=== PATIENT | female | born 1935 | race Caucasian/White ===

== ENCOUNTER 2017-07-18 14:09 | Inpatient (IN) | payer MEDICARE, OTHER ==
[2017-07-18] MEDS ORDERED: Sodium Chloride 0.9% 500 ML IV ONE (14:19)
[2017-07-18] MEDS ORDERED: Sodium Chloride 0.9% 10 ML Syringe FLUSH PRN ×2 (14:19→18:26)
[2017-07-18] MEDS ORDERED: Famotidine 20 MG Tab PO ONE (14:19)
[2017-07-18] MEDS ORDERED: Ondansetron 4 MG/2 ML SDV IVPUSH ONE (14:19)
--- NOTE | 2017-07-18 14:21 | EDM.PDOC ---
ED HPI GENERAL MEDICAL PROBLEM - General Chief Complaint: Chest Pain Stated Complaint: [facility] Time Seen by Provider: 07/18/17 14:17 Source of Information: Reports: Patient, EMS, RN Notes Reviewed - History of Present Illness INITIAL COMMENTS - FREE TEXT/NARRATIVE: 82-year-old lady is been brought in by [facility] [place] [facility] for evaluation of upper abdominal discomfort, left lower chest discomfort, nausea vomiting. This all came on quite suddenly just a short time ago. She did get weak, lightheaded and dizzy and diaphoretic so very concerned about having heart attack. She does have history of coronary artery disease with prior IN in the past. She had been feeling totally fine with no unusual symptoms earlier today. There is no report of cough, fever, chills, diarrhea. She also does deny vertigo. Continues to feel extremely nauseated continued vomiting on arrival to ED. Chest Pain Score (Numeric/FACES): 4 - Related Data Allergies Allergy/AdvReac Type Severity Reaction Status Date / Time Penicillins Allergy Cannot Verified 07/18/17 14:16 Remember codeine AdvReac Nausea and Verified 07/18/17 14:35 Vomiting diazepam [From Valium] AdvReac Change Verified 07/18/17 14:35 Mental Status hydrocodone AdvReac Nausea and Verified 07/18/17 14:35 Vomiting Home Meds: Home Meds Levothyroxine 25 mcg PO ACBREAKFAST 07/18/17 [History] Social & Family History - Tobacco Use Smoking Status *Q: Never Smoker - Alcohol Use Days Per Week of Alcohol Use: 0 - Recreational Drug Use Recreational Drug Use: No ED ROS GENERAL - Review of Systems Review Of Systems: See Below Constitutional: Reports: Diaphoresis. Denies: Fever, Chills HEENT: Denies: Throat Pain Respiratory: Reports: Shortness of Breath (Moderate with vomiting). Denies: Pleuritic Chest Pain Cardiovascular: Reports: Chest Pain (Primarily upper mid abdominal discomfort with some left lower chest discomfort as well), Lightheadedness GI/Abdominal: Reports: Abdominal Pain, Nausea (Upper mid abdominal pain and cramping), Vomiting. Denies: Diarrhea (Severe, repetitive) Musculoskeletal: Denies: Neck Pain, Shoulder Pain, Arm Pain Skin: Reports: Diaphoresis (No better) Neurological: Reports: Dizziness. Denies: Numbness, Tingling, Trouble Speaking ED EXAM, GENERAL - Physical Exam Exam: See Below General Appearance: Alert, Anxious, Moderate Distress Eye Exam: Bilateral Eye: PERRL Throat/Mouth: Normal Inspection Head: Atraumatic. No: Facial Swelling Neck: Supple, Full Range of Motion, Other (No JVD) Respiratory/Chest: Lungs Clear, Normal Breath Sounds, Respiratory Distress ( Mild tachypnea noted with nausea vomiting on arrival to ED). No: Rales, Rhonchi , Wheezing Cardiovascular: Regular Rate, Rhythm GI/Abdominal: Soft, Tender (Upper mid abdomen). No: Guarding, Rebound Back Exam: No: CVA Tenderness (L), CVA Tenderness (R) Extremities: Normal Inspection, Normal Range of Motion. No: Pedal Edema, Leg Pain Neurological: Alert, Oriented, No Motor/Sensory Deficits Skin Exam: Warm, Dry, Pallor Course - Vital Signs Last Recorded V/S: Last Vital Signs Temp 99.9 F 07/18/17 14:14 Pulse 97 07/18/17 14:14 Resp 19 07/18/17 14:14 BP 191/104 H 07/18/17 14:14 Pulse Ox 97 07/18/17 14:14 - Orders/Labs/Meds Orders: Active Orders 24 hr Category Date Time Status EKG 12 Lead [EKG Documentation Completion] [RC] STAT Care 07/18/17 14:19 Active Peripheral IV Care [RC] . DIRECTED Care 07/18/17 14:21 Active Sodium Chloride 0.9% [Saline Flush] Med 07/18/17 14:19 Active 10 ml FLUSH ASDIRECTED PRN Sodium Chloride 0.9% [Saline Flush] Med 07/18/17 18:26 Active 10 ml FLUSH ONETIME PRN Peripheral IV Insertion Adult [OM.PC] Stat Oth 07/18/17 14:19 Ordered Medication Orders Sodium Chloride (Saline Flush) 10 ml FLUSH ASDIRECTED PRN PRN Reason: Keep Vein Open Last Admin: 07/18/17 14:32 Dose: 10 ml Sodium Chloride (Saline Flush) 10 ml FLUSH ONETIME PRN PRN Reason: IV FLUSH Last Admin: 07/18/17 18:54 Dose: 10 ml Labs: Laboratory Tests 07/18/17 07/18/17 07/18/17 Range/Units 14:27 14:27 18:01 WBC 8.60 (3.98-10.04) K/mm3 RBC 4.65 (3.98-5.22) M/mm3 Hgb 14.3 (11.2-15.7) gm/L Hct 41.1 (34.1-44.9) % MCV 88.4 (79.4-94.8) fl MCH 30.8 (25.6-32.2) pg MCHC 34.8 (32.2-35.5) g/dl RDW Std Deviation 41.2 (36.4-46.3) fL Plt Count 207 (182-369) K/mm3 MPV 9.6 (9.4-12.3) fl Neut % (Auto) 85.8 H (34.0-71.1) % Lymph % (Auto) 9.4 L (19.3-51.7) % [place] % (Auto) 4.4 L (4.7-12.5) % Eos % (Auto) 0.3 L (0.7-5.8) Baso % (Auto) 0.1 (0.1-1.2) % Neut # (Auto) 7.37 H (1.56-6.13) K/mm3 Lymph # (Auto) 0.81 L (1.18-3.74) K/mm3 [place] # (Auto) 0.38 H (0.24-0.36) K/mm3 Eos # (Auto) 0.03 L (0.04-0.36) K/mm3 Baso # (Auto) 0.01 (0.01-0.08) K/mm3 Manual Slide Review Normal smear Sodium 137 (136-145) mEq/L Potassium 4.0 (3.5-5.1) mEq/L Chloride 101 (98-107) mEq/L Carbon Dioxide 25 (21-32) mEq/L Anion Gap 15.0 (5-15) BUN 20 H (7-18) mg/dL Creatinine 1.1 H (0.55-1.02) mg/dL Est Cr Clr Drug Dosing 34.87 mL/min Estimated GFR (MDRD) 47 (>60) mL/min BUN/Creatinine Ratio 18.2 H (14-18) Glucose 115 (83-115) mg/dL Calcium 9.2 (8.5-10.1) mg/dL Total Bilirubin 0.4 (0.2-1.0) mg/dL AST 33 (15-37) U/L ALT 36 (14-59) U/L Alkaline Phosphatase 97 (46-116) U/L Troponin I 0.017 0.020 (0.00-0.056) ng/mL Total Protein 8.0 (6.4-8.2) g/dl Albumin 3.9 (3.4-5.0) g/dl Globulin 4.1 gm/dL Albumin/Globulin Ratio 1.0 (1-2) Meds: Medications Generic Name Dose Route Start Last Admin Trade Name Freq PRN Reason Stop Dose Admin Sodium Chloride 10 ml 07/18/17 14:19 07/18/17 14:32 Saline Flush FLUSH 10 ml ASDIRECTED PRN Administration Keep Vein Open Sodium Chloride 10 ml 07/18/17 18:26 07/18/17 18:54 Saline Flush FLUSH 10 ml ONETIME PRN Administration IV FLUSH Discontinued Medications Generic Name Dose Route Start Last Admin Trade Name Freq PRN Reason Stop Dose Admin Diatrizoate Meglum/Diatrizoate Sod 90 ml 07/18/17 18:26 07/18/17 18:54 Gastrografin 37% PO 07/18/17 18:27 90 ml ONETIME ONE Administration Famotidine 20 mg 07/18/17 14:19 07/18/17 17:52 Pepcid PO 07/18/17 14:20 Not Given ONETIME ONE Famotidine Confirm 07/18/17 14:33 07/18/17 14:32 Pepcid Administered 07/18/17 14:34 Not Given Dose 20 mg .ROUTE .STK-MED ONE Famotidine 20 mg 07/18/17 14:30 07/18/17 14:34 Pepcid IVPUSH 07/18/17 14:31 20 mg ONETIME ONE Administration Hydromorphone HCl 0.25 mg 07/18/17 14:58 07/18/17 15:06 Dilaudid IVPUSH 07/18/17 14:59 0.25 mg ONETIME ONE Administration Hydromorphone HCl 0.25 mg 07/18/17 15:47 07/18/17 16:19 Dilaudid IVPUSH 07/18/17 15:48 0.25 mg ONETIME ONE Administration Sodium Chloride 500 mls @ 999 mls/hr 07/18/17 14:19 07/18/17 14:31 Normal Saline IV 07/18/17 14:49 999 mls/hr .BOLUS ONE Administration Iopamidol 100 ml 07/18/17 18:26 07/18/17 18:54 Isovue-300 (61%) IVPUSH 07/18/17 18:27 100 ml ONETIME ONE Administration Metoclopramide HCl 5 mg 07/18/17 15:34 07/18/17 15:40 Reglan IVPUSH 07/18/17 15:35 5 mg ONETIME ONE Administration Ondansetron HCl 4 mg 07/18/17 14:19 07/18/17 14:31 Zofran IVPUSH 07/18/17 14:20 4 mg ONETIME ONE Administration Promethazine HCl 25 mg 07/18/17 16:55 07/18/17 17:00 Phenergan IM 07/18/17 16:56 25 mg ONETIME ONE Administration - Re-Assessments/Exams Free Text/Narrative Re-Assessment/Exam: 07/18/17 17:02. Patient has had severe recurrent upper abdominal pain, nausea, recurrent vomiting. She had Zofran 4 mg ODT in route but vomited shortly after that. We gave her Zofran 4 mg IV on arrival to ED. With continued nausea vomiting we've given Reglan 4 mg IV. she has had further nausea vomiting after her flat and upright abdomen. Therefore we will now give Phenergan 25 mg IM. Flat and upright of the abdomen does show multiple air-fluid levels on the right. Therefore abdominal CT with oral and IV contrast has been ordered. Hopefully the Phenergan will help. Unable to tolerate oral contrast we will have to do it with out ORAL. 07/18/17 20:[address] does show small bowel slightly prominent but improved from flat and upright done about 2 hours ago. Radiologist states this may represent a minimal partial small bowel obstruction or may represent change from gastroenteritis. See report for details. She still is nauseated but at least now no longer having the frequent repetitive vomiting that we were dealing with initially. She still does have some upper abdominal discomfort and cramping. Repeat troponin has come back negative. Patient will be admitted for further treatment. Departure - Departure Time of Disposition: 19:45 Disposition: Admitted As Inpatient 65 Condition: Fair Clinical Impression: Abdominal pain Qualifiers: Abdominal location: upper abdomen, unspecified Qualified Code(s): R10.10 - Upper abdominal pain, unspecified Vomiting Qualifiers: Vomiting type: unspecified Vomiting Intractability: non-intractable Nausea presence: with nausea Qualified Code(s): R11.2 - Nausea with vomiting, unspecified Referrals: PCP,Not In Area [Primary Care Provider] - Forms: ED Department Discharge ED Communication - Discussed Case With (1) Discussed Case With (1): Admitting Provider (David, decision to admit at about 194) - My Orders Last 24 Hours: My Active Orders 07/18/17 14:19 EKG 12 Lead [EKG Documentation Completion] [RC] STAT Sodium Chloride 0.9% [Saline Flush] 10 ml FLUSH ASDIRECTED PRN Peripheral IV Insertion Adult [OM.PC] Stat 07/18/17 14:21 Peripheral IV Care [RC] . DIRECTED 07/18/17 18:26 Sodium Chloride 0.9% [Saline Flush] 10 ml FLUSH ONETIME PRN - Assessment/Plan Last 24 Hours: My Active Orders 07/18/17 14:19 EKG 12 Lead [EKG Documentation Completion] [RC] STAT Sodium Chloride 0.9% [Saline Flush] 10 ml FLUSH ASDIRECTED PRN Peripheral IV Insertion Adult [OM.PC] Stat 07/18/17 14:21 Peripheral IV Care [RC] . DIRECTED 07/18/17 18:26 Sodium Chloride 0.9% [Saline Flush] 10 ml FLUSH ONETIME PRN
[2017-07-18] MEDS ORDERED: Famotidine 20 MG/2 ML SDV IVPUSH ONE (14:30)
[2017-07-18] MEDS ORDERED: Famotidine 20 MG/2 ML SDV ONE (14:33)
[2017-07-18] MEDS ORDERED: HYDROmorphone 0.5 MG/0.5 ML SYRINGE IVPUSH ONE ×2 (14:58→15:47)
[2017-07-18] MEDS ORDERED: Metoclopramide 10 MG/2 ML SDV IVPUSH ONE (15:34)
--- NOTE | 2017-07-18 15:46 | CR ---
Chest: Portable view of the chest was obtained. Comparison: Prior chest x-ray of 03/09/14. Heart size slightly prominent but accentuated from portable technique. Lungs are clear. Bony structures are grossly intact. Surgical clips are noted from prior cholecystectomy. Impression: 1. Accentuated heart size due to portable technique. 2. Nothing acute is appreciated on portable chest x-ray. Diagnostic code #2
[2017-07-18] MEDS ORDERED: Promethazine 25 MG/ML SDV IM ONE (16:55)
--- NOTE | 2017-07-18 18:17 | CR ---
Abdomen: Upright view of the abdomen was obtained. Slightly prominent air-filled loops of small bowel are noted within right mid abdomen. Air-fluid levels are seen. Surgical clips are noted within the upper right abdomen. Bony structures are unremarkable. Several surgical clips are seen within the left side of the pelvis. Other surgical clips are seen within the left mid abdomen. Impression: 1. Slightly prominent small bowel loops with air-fluid levels most likely due to distal small bowel obstruction. Diagnostic code #3
[2017-07-18] MEDS ORDERED: Iopamidol 612 MG/ML 100 ML Bottle IVPUSH ONE (18:26)
[2017-07-18] MEDS ORDERED: Diatrizoate Meglumine/Diatrizoate Sodium 37% 120 ML Bottle PO ONE (18:26)
--- NOTE | 2017-07-18 19:26 | CT ---
CT abdomen and pelvis Technique: Multiple axial sections were obtained from above the dome of the diaphragm inferiorly through the pubic symphysis. Intravenous and oral contrast was utilized. Delayed images were also obtained through the pelvis. Comparison: Prior abdominal x-ray performed earlier on the same day (4:35 PM). Findings: Visualized lung bases shows nothing acute. Liver shows no focal parenchymal abnormality. Surgical clips are seen from prior cholecystectomy. Small hiatal hernia is noted. Spleen appears within normal limits. Adrenal glands show no nodule. Right kidney shows a minimal low-density lesion inferiorly measuring 6 mm which is nonspecific regarding Hounsfield unit measurements. Low-density lesion is seen within the mid to lower left kidney measuring 5 mm also too small to characterize by Hounsfield unit measurements but most likely due to small cysts. Aorta shows diffuse atherosclerotic change without aneurysmal dilatation. No retroperitoneal adenopathy is seen. No pelvic mass or adenopathy is noted. Delayed images shows contrast within the distal ureters and within the bladder. Small bowel appears slightly prominent but does not appear as prominent as on the plain film study and may represent a minimal partial small bowel obstruction or represent change from gastroenteritis. No other etiology is otherwise seen on this exam. Appendix is not visualized with certainty. No free fluid or inflammatory change is seen. Bone window settings shows mild degenerative change at L4-L5 and L5-S1 with mild disc space narrowing and vacuum phenomena and anterior osteophytes. Impression: 1. Minimally prominent small bowel. This does not appear as prominent as on prior plain film exam. Minimal partial small bowel obstruction is possible or gastroenteritis can also cause a similar finding. 2. Other incidental findings as noted above. Diagnostic code #3
[2017-07-18] MEDS ORDERED: Promethazine 6.25 MG in Sodium Chloride 0.9% 50 ML IV PRN (22:11)
[2017-07-18] MEDS ORDERED: Ondansetron 4 MG/2 ML SDV IV PRN (22:11)
[2017-07-18] MEDS ORDERED: LORazepam 2 MG/ML MDV IV PRN (22:11)
[2017-07-18] MEDS ORDERED: HYDROmorphone 0.5 MG/0.5 ML SYRINGE IVPUSH PRN (22:11)
[2017-07-18] MEDS ORDERED: Albuterol/Ipratropium 3.0-0.5 MG/3 ML Neb Soln NEB PRN (22:11)
[2017-07-18] MEDS ORDERED: Acetaminophen 325 MG Tab PO PRN (22:11)
[2017-07-18] MEDS ORDERED: Pantoprazole 40 MG Vial ONE (22:11)
--- NOTE | 2017-07-18 22:11 | PCM.HP ---
H&P History of Present Illness - General Date of Service: 07/18/17 Admit Problem/Dx: Admission Diagnosis/Problem Admission Diagnosis/Problem Ileus Source of Information: Patient, Family, Old Records, Provider, RN Notes Reviewed History Limitations: Reports: No Limitations - History of Present Illness Initial Comments - Free Text/Narative: This is an 82 yo pleasant elderly white female with past medical hx/o hypothyroidism who comes in for evaluation of upper abdominal pain associated with nausea, vomiting and lose bowel movement that started shortly today. She denies eating/drinking unusual food or fluids. She denies any sick contact. No recent travel outside the country. She report no previous hx/o it in the past. She also associate her c/o with weakness, lightheadedness, dizziness and diaphoresis. Initial workup in the emergency department shows a CBC remarkable for neutrophils of 85.8%, lymphocytes of 9.4%, monocytes of 4.4%, and eosinophils of 0.3%. Her chemistry is remarkable for BUN of 20, and creatinine of 1.1. Her troponin 2 are within normal limits. Her chest x-ray shows nothing acute. Abdominal x-ray report reads slightly prominent small bowel loops with airfluid levels most likely due to distal small bowel obstruction. Abdominal/pelvic CT scan report shows minimally prominent small bowel. This does not appear as prominent as on prior plain film exam. Minimal partial small bowel obstruction is possible or gastroenteritis can also cause a similar finding. Patient is being admitted for medical management of epigastric pain and partial small bowel obstruction. She is full code. Chest Pain Score (Numeric/FACES): 4 - Related Data Allergies/Adverse Reactions: Allergies Allergy/AdvReac Type Severity Reaction Status Date / Time Penicillins Allergy Cannot Verified 07/19/17 00:04 Remember codeine AdvReac Nausea and Verified 07/19/17 00:04 Vomiting diazepam [From Valium] AdvReac Change Verified 07/19/17 00:04 Mental Status hydrocodone AdvReac Nausea and Verified 07/19/17 00:04 Vomiting Home Medications: Home Meds Levothyroxine 25 mcg PO ACBREAKFAST 07/18/17 [History] Cholecalciferol (Vitamin D3) [D3-2000] 6,000 unit PO DAILY 07/19/17 [History] Fish Oil/[place]-3 Fatty Acids [Fish Oil 1,000 MG] 1 each PO DAILY 07/19/17 [ History] Magnesium Oxide 500 mg PO BEDTIME 07/19/17 [History] Ubidecarenone/Vitamin E Mixed [Vhw92-[id number] E 200 mg-20 Unit Sfg] 600 unit PO DAILY 07/19/17 [History] Past Medical History Cardiovascular History: Reports: [place] Respiratory History: Reports: SOB Musculoskeletal History: Reports: Fracture Endocrine/Metabolic History: Reports: Hypothyroidism Oncologic (Cancer) History: Reports: Breast - Past Surgical History Cardiovascular Surgical History: Reports: Coronary Artery Stent GI Surgical History: Reports: Appendectomy, Cholecystectomy Musculoskeletal Surgical History: Reports: Other (See Below) Other Musculoskeletal Surgeries/Procedures:: wrist surgery Social & Family History - Family History Family Medical History: Noncontributory - Tobacco Use Smoking Status *Q: Never Smoker Used Tobacco, but Quit: Yes Month Tobacco Last Used: 1977 Second Hand Smoke Exposure: No - Caffeine Use Caffeine Use: Reports: Coffee - Alcohol Use Days Per Week of Alcohol Use: 0 - Recreational Drug Use Recreational Drug Use: No H&P Review of Systems - Review of Systems: Review Of Systems: See Below General: Reports: Diaphoresis. Denies: Fever, Chills, Malaise, Weakness, Fatigue HEENT: Reports: No Symptoms Pulmonary: Denies: Shortness of Breath, Pleuritic Chest Pain, Cough Cardiovascular: Reports: Lightheadedness. Denies: Chest Pain, Palpitations, Dyspnea on Exertion, Edema, Syncope, Claudication, Blood Pressure Problem Gastrointestinal: Reports: Abdominal Pain (epigastric), Flatus, Nausea, Vomiting , Other (Lose bowel ). Denies: Anorexia, Black Stool, Bloody Stool, Constipation, Diarrhea, Decreased Appetite, Difficulty Swallowing, Distension, Hematemesis, Hematochezia, Melena, Mucous in Stool Genitourinary: Reports: No Symptoms Musculoskeletal: Reports: No Symptoms Skin: Denies: Cyanosis, Mottled, Pallor, Diaphoresis, Bruising, Rash, Erythema, Change in Color Psychiatric: Denies: Depression, Anxiety, Hallucinations, Homicidal Ideation, Hallucinations (Auditory) Neurological: Reports: Dizziness. Denies: Confusion, Difficulty Walking, Weakness, Gait Disturbance Hematologic/Lymphatic: Reports: No Symptoms Immunologic: Reports: No Symptoms Exam - Exam Exam: See Below - Vital Signs Vital Signs: Last Vital Signs Temp 37.7 C 07/18/17 14:14 Pulse 97 07/18/17 14:14 Resp 19 02/21/18 14:14 BP 191/104 H 07/18/17 14:14 Pulse Ox 97 07/18/17 14:14 Weight: 63.503 kg - Exam General: Alert, Oriented, Cooperative. No: Mild Distress HEENT: Conjunctiva Clear, EACs Clear, EOMI, Hearing Intact, Mucosa Moist & Abernathy , Nares Patent, Normal Nasal Septum, Posterior Pharynx Clear, Pupils Equal, Pupils Reactive Neck: Supple, Trachea Midline Lungs: Clear to Auscultation, Normal Respiratory Effort Cardiovascular: Regular Rate, Regular Rhythm GI/Abdominal Exam: Normal Bowel Sounds, Soft, No Organomegaly, No Distention, No Abnormal Bruit, No Mass, Tender (epigasrric region). No: Guarding, Rigid, Rebound (Female) Exam: Deferred Rectal (Female) Exam: Deferred Back Exam: Normal Inspection, Decreased Range of Motion Extremities: Normal Inspection, Normal Range of Motion, Non-Tender, No Pedal Edema, Normal Capillary Refill Peripheral Pulses: 2+: Posterior Tibial (L), Posterior Tibial (R), Dorsalis Pedis (L), Dorsalis Pedis (R) Skin: Warm, Dry, Intact Neuro Extensive - Mental Status: Oriented x3, Normal Cognition, Memory Intact Neuro Extensive - Motor, Sensory, Reflexes: CN II-XII Intact, Normal Gait Psychiatric: Alert, Normal Affect, Normal Mood - Patient Data Result Diagrams: 07/19/17 06:11 07/19/17 06:11 *Q Meaningful Use (ADM) - VTE *Q VTE Criteria *Q: - Stroke *Q Stroke Criteria *Q: - AMI *Q AMI Criteria *Q: Problem List Initiated/Reviewed/Updated: Yes Orders Last 24hrs: Active Orders 24 hr Category Date Time Status Admission Status [Patient Status] [ADT] Routine ADT 07/18/17 21:13 Active Medication Orders Sodium Chloride (Saline Flush) 10 ml FLUSH ASDIRECTED PRN PRN Reason: Keep Vein Open Last Admin: 07/18/17 14:32 Dose: 10 ml Sodium Chloride (Saline Flush) 10 ml FLUSH ONETIME PRN PRN Reason: IV FLUSH Last Admin: 07/18/17 18:54 Dose: 10 ml Assessment/Plan Comment:: Assessment/Plan: Acute: Partial Small Bowel Obstruction - She is passing gas and had lose bowel movements - No recent or previous abdominal surgery - Conservative management - Prokinetic agent - Encourage to Ambulate QID as tolerated Dehydration - 2/2 GI Loss - Adequately hydrating Chronic: Hypothyroidism Plan: Admit to the floor Resume Home Meds Routine AM Labs Monitor for e-lytes abnormality PRN Meds for Symptomatic Control NPO except ice chips, sips of water and oral pills PT/OT consult for d/c placement Code Status: 1
[2017-07-18] MEDS ORDERED: LORazepam 2 MG/ML MDV IVPUSH PRN (22:15)
[2017-07-18] MEDS ORDERED: Metoprolol Tartrate 5 MG/5 ML SDV IVPUSH PRN (22:15)
[2017-07-18] MEDS ORDERED: hydrALAZINE 20 MG/ML SDV IVPUSH PRN (22:15)
[2017-07-18] MEDS ORDERED: Dextrose 5%-0.9% NaCl 1,000 ML IV SCH (22:30)
[2017-07-18] MEDS: Metoclopramide 10 MG/2 ML SDV IVPUSH SCH (23:45)
[2017-07-19] MEDS ORDERED: Pantoprazole 40 MG Vial IVPUSH ONE (00:56)
[2017-07-19] MEDS: Metoclopramide 10 MG/2 ML SDV IVPUSH SCH (06:52)
[2017-07-19] MEDS: Levothyroxine 25 MCG Tab PO SCH (06:53)
[2017-07-19] MEDS: Famotidine 20 MG Tab PO SCH (09:30)
[2017-07-19] MEDS ORDERED: Metoclopramide 10 MG/2 ML SDV IVPUSH PRN (13:49)
--- NOTE | 2017-07-19 16:39 | PCM.PN ---
- General Info Date of Service: 07/19/17 Admission Dx/Problem (Free Text): Admission Diagnosis/Problem Admission Diagnosis/Problem Ileus Subjective Update: Follow Up Functional Status: Reports: Pain Controlled, Ambulating, Urinating. Denies: Tolerating Diet, New Symptoms - Review of Systems General: Denies: Fever, Weakness, Fatigue, Malaise, Chills HEENT: Reports: No Symptoms Pulmonary: Denies: Shortness of Breath Gastrointestinal: Reports: Flatus. Denies: Abdominal Pain, Constipation, Decreased Appetite, Diarrhea, Difficulty Swallowing, Nausea, Vomiting Genitourinary: Reports: No Symptoms Musculoskeletal: Reports: No Symptoms Skin: Denies: Cyanosis, Mottled, Pallor, Diaphoresis, Bruising, Pruritis Neurological: Denies: Pre-Existing Deficit, Difficulty Walking, Weakness, Gait Disturbance Psychiatric: Denies: Depression, Anxiety, Agitation, Hallucinations Systems Review Comment:: No overnight or acute issues. She slept pretty good last night. She is passing gas but no bowel movement. She has no new complaints. - Patient Data Vitals - Most Recent: Last Vital Signs Temp 36.8 C 07/19/17 11:13 Pulse 88 07/19/17 11:13 Resp 24 H 07/19/17 11:13 BP 126/67 07/19/17 11:13 Pulse Ox 91 L 07/19/17 11:13 Weight - Most Recent: 63.503 kg I&O - Last 24 Hours: Intake & Output 07/19/17 07/19/17 07/19/17 06:59 14:59 22:59 Intake Total 575 Output Total 100 Balance 475 Lab Results Last 24 Hours: Laboratory Results - last 24 hr 07/19/17 07/19/17 Range/Units 06:11 06:11 WBC 5.12 (3.98-10.04) K/mm3 RBC 3.93 L (3.98-5.22) M/mm3 Hgb 12.1 (11.2-15.7) gm/L Hct 35.5 (34.1-44.9) % MCV 90.3 (79.4-94.8) fl MCH 30.8 (25.6-32.2) pg MCHC 34.1 (32.2-35.5) g/dl RDW Std Deviation 42.8 (36.4-46.3) fL Plt Count 176 L (182-369) K/mm3 MPV 10.0 (9.4-12.3) fl Neut % (Auto) 81.5 H (34.0-71.1) % Lymph % (Auto) 10.7 L (19.3-51.7) % [place] % (Auto) 7.6 (4.7-12.5) % Eos % (Auto) 0 L (0.7-5.8) Baso % (Auto) 0.2 (0.1-1.2) % Neut # (Auto) 4.17 (1.56-6.13) K/mm3 Lymph # (Auto) 0.55 L (1.18-3.74) K/mm3 [place] # (Auto) 0.39 H (0.24-0.36) K/mm3 Eos # (Auto) 0.00 L (0.04-0.36) K/mm3 Baso # (Auto) 0.01 (0.01-0.08) K/mm3 Sodium 138 (136-145) mEq/L Potassium 3.7 (3.5-5.1) mEq/L Chloride 106 (98-107) mEq/L Carbon Dioxide 22 (21-32) mEq/L Anion Gap 13.7 (5-15) BUN 21 H (7-18) mg/dL Creatinine 1.1 H (0.55-1.02) mg/dL Est Cr Clr Drug Dosing 33.46 mL/min Estimated GFR (MDRD) 47 (>60) mL/min BUN/Creatinine Ratio 19.1 H (14-18) Glucose 114 (83-115) mg/dL Calcium 8.1 L (8.5-10.1) mg/dL Magnesium 1.8 (1.8-2.4) mg/dl Med Orders - Current: Current Medications Acetaminophen (Tylenol) 650 mg PO Q4H PRN PRN Reason: Pain (Mild 1-3)/fever Albuterol/Ipratropium (Duoneb 3.0-0.5 Mg/3 Ml) 3 ml NEB Q4H PRN PRN Reason: Shortness Of Breath/wheezing Famotidine (Pepcid) 20 mg PO DAILY [facility] Last Admin: 07/19/17 09:30 Dose: 20 mg Hydralazine HCl (Apresoline) 20 mg IVPUSH Q4H PRN PRN Reason: Hypertension Hydromorphone HCl (Dilaudid) 0.25 mg IVPUSH Q2H PRN PRN Reason: Pain (severe 7-10) Dextrose/Sodium Chloride (Dextrose 5%-Normal Saline) 1,000 mls @ 100 mls/hr IV ASDIRECTED [facility] Last Admin: 07/18/17 22:33 Dose: 100 mls/hr Levothyroxine Sodium (Levothyroxine) 25 mcg PO ACBREAKFAST [facility] Last Admin: 07/19/17 06:53 Dose: 25 mcg Lorazepam (Ativan) 0.25 mg IV Q6H PRN PRN Reason: Anxiety Lorazepam (Ativan) 2 mg IVPUSH Q4H PRN PRN Reason: Seizures Magnesium Sulfate (Pharmacy To Dose - Magnesium Replacement) 1 dose .XX ASDIRECTED [facility] Metoclopramide HCl (Reglan) 2.5 mg IVPUSH Q8H PRN PRN Reason: SBO Metoprolol Tartrate (Lopressor) 5 mg IVPUSH Q4H PRN PRN Reason: Tachycardia Ondansetron HCl (Zofran) 4 mg IV Q4H PRN PRN Reason: Nausea/Vomiting Potassium Chloride (Pharmacy To Dose - Potassium Replacement) 1 dose .XX ASDIRECTED [facility] Sodium Chloride (Saline Flush) 10 ml FLUSH ASDIRECTED PRN PRN Reason: Keep Vein Open Last Admin: 07/18/17 14:32 Dose: 10 ml Sodium Chloride (Saline Flush) 10 ml FLUSH ONETIME PRN PRN Reason: IV FLUSH Last Admin: 07/18/17 18:54 Dose: 10 ml Discontinued Medications Diatrizoate Meglum/Diatrizoate Sod (Gastrografin 37%) 90 ml PO ONETIME ONE Stop: 07/18/17 18:27 Last Admin: 07/18/17 18:54 Dose: 90 ml Famotidine (Pepcid) 20 mg PO ONETIME ONE Stop: 07/18/17 14:20 Last Admin: 07/18/17 17:52 Dose: Not Given Famotidine (Pepcid) Confirm Administered Dose 20 mg .ROUTE .STK-MED ONE Stop: 07/18/17 14:34 Last Admin: 07/18/17 14:32 Dose: Not Given Famotidine (Pepcid) 20 mg IVPUSH ONETIME ONE Stop: 07/18/17 14:31 Last Admin: 07/18/17 14:34 Dose: 20 mg Hydromorphone HCl (Dilaudid) 0.25 mg IVPUSH ONETIME ONE Stop: 07/18/17 14:59 Last Admin: 07/18/17 15:06 Dose: 0.25 mg Hydromorphone HCl (Dilaudid) 0.25 mg IVPUSH ONETIME ONE Stop: 07/18/17 15:48 Last Admin: 07/18/17 16:19 Dose: 0.25 mg Sodium Chloride (Normal Saline) 500 mls @ 999 mls/hr IV .BOLUS ONE Stop: 07/18/17 14:49 Last Admin: 07/18/17 14:31 Dose: 999 mls/hr Promethazine HCl 6.25 mg/ (Sodium Chloride) 50.25 mls @ 100 mls/hr IV Q6H PRN PRN Reason: Nausea/Vomiting Iopamidol (Isovue-300 (61%)) 100 ml IVPUSH ONETIME ONE Stop: 07/18/17 18:27 Last Admin: 07/18/17 18:54 Dose: 100 ml Metoclopramide HCl (Reglan) 5 mg IVPUSH ONETIME ONE Stop: 07/18/17 15:35 Last Admin: 07/18/17 15:40 Dose: 5 mg Metoclopramide HCl (Reglan) 2.5 mg IVPUSH Q8H [facility] Last Admin: 07/19/17 06:52 Dose: 2.5 mg Ondansetron HCl (Zofran) 4 mg IVPUSH ONETIME ONE Stop: 07/18/17 14:20 Last Admin: 07/18/17 14:31 Dose: 4 mg Pantoprazole Sodium (Protonix Iv) 40 mg .XX ONETIME ONE Stop: 07/18/17 22:12 Last Admin: 07/19/17 01:28 Dose: Not Given Pantoprazole Sodium (Protonix Iv) 40 mg IVPUSH ONETIME ONE Stop: 07/19/17 00:57 Last Admin: 07/19/17 04:16 Dose: 40 mg Promethazine HCl (Phenergan) 25 mg IM ONETIME ONE Stop: 07/18/17 16:56 Last Admin: 07/18/17 17:00 Dose: 25 mg - Exam General: Alert, Oriented, Cooperative, No Acute Distress HEENT: Pupils Equal, Pupils Reactive, EOMI, Mucous Membr. Moist/[place] Neck: Supple, Trachea Midline, No JVD, No Thyromegaly Lungs: Clear to Auscultation, Normal Respiratory Effort Cardiovascular: Regular Rate, Regular Rhythm GI/Abdominal Exam: Normal Bowel Sounds, Soft, Non-Tender, No Organomegaly, No Distention, No Abnormal Bruit (Female) Exam: Deferred Back Exam: Normal Inspection, Decreased Range of Motion Extremities: Normal Inspection, Normal Range of Motion, Non-Tender, No Pedal Edema, Normal Capillary Refill Peripheral Pulses: 2+: Dorsalis Pedis (L), Dorsalis Pedis (R) Skin: Warm, Dry, Intact Neurological: No New Focal Deficit Psy/Mental Status: Alert, Normal Affect, Normal Mood - Problem List Review Problem List Initiated/Reviewed/Updated: Yes - My Orders Last 24 Hours: My Active Orders 07/18/17 21:13 Admission Status [Patient Status] [ADT] Routine 07/18/17 22:11 Ambulate [RC] ASDIRECTED Height and Weight [RC] 04 Oxygen Therapy [RC] PRN Up ad Estela [RC] ASDIRECTED VTE/DVT Education [RC] QSHIFT Vital Signs [RC] Q4HR Acetaminophen [Tylenol] 650 mg PO Q4H PRN Albuterol/Ipratropium [DuoNeb 3.0-0.5 MG/3 ML] 3 ml NEB Q4H PRN HYDROmorphone [Dilaudid] 0.25 mg IVPUSH Q2H PRN LORazepam [Ativan] 0.25 mg IV Q6H PRN Ondansetron [Zofran] 4 mg IV Q4H PRN Resuscitation Status Routine 07/18/17 22:12 Intake and Output [RC] 04,16 Pulse Oximetry [RC] PRN Sequential Compression Device [OM.PC] Per Unit Routine 07/18/17 22:13 Antiembolic Devices [RC] QSHIFT RT Aerosol Therapy [RC] ASDIRECTED 07/18/17 22:14 Consult to Income Tax Return Preparer [CONS] Routine Consult to Spiritual Care [CONS] Routine OT Evaluation and Treatment [CONS] Routine PT Evaluation and Treatment [CONS] Routine 07/18/17 22:15 LORazepam [Ativan] 2 mg IVPUSH Q4H PRN Magnesium Rep Pharmacy to Dose [Pharmacy to Dose - Magnesium Replacement] 1 dose .XX ASDIRECTED Metoprolol Tartrate [Lopressor] 5 mg IVPUSH Q4H PRN Potassium Rep Pharmacy to Dose [Pharmacy to Dose - Potassium Replacement] 1 dose .XX ASDIRECTED hydrALAZINE [Apresoline] 20 mg IVPUSH Q4H PRN 07/18/17 22:30 Dextrose 5%-0.9% NaCl [Dextrose 5%-Normal Saline] 1,000 ml IV ASDIRECTED 07/19/17 06:00 Levothyroxine 25 mcg PO ACBREAKFAST 07/19/17 09:00 Famotidine [Pepcid] 20 mg PO DAILY 07/19/17 13:49 Metoclopramide [Reglan] 2.5 mg IVPUSH Q8H PRN 07/19/17 Breakfast Clear Liquid Diet [DIET] 07/19/17 Dinner Full Liquid Diet [DIET] 07/20/17 05:11 BASIC METABOLIC PANEL,BMP [CHEM] AM CBC WITH AUTO DIFF [HEME] AM MAGNESIUM [CHEM] AM 07/21/17 05:11 BASIC METABOLIC PANEL,BMP [CHEM] AM CBC WITH AUTO DIFF [HEME] AM MAGNESIUM [CHEM] AM 07/22/17 05:11 BASIC METABOLIC PANEL,BMP [CHEM] AM CBC WITH AUTO DIFF [HEME] AM MAGNESIUM [CHEM] AM - Plan Plan:: Assessment/Plan: Acute: Partial Small Bowel Obstruction - She is passing gas and had lose bowel movements - No recent or previous abdominal surgery - Conservative management and Prokinetic agent - Encourage to Ambulate QID as tolerated Resolved: S/p Dehydration - 2/2 GI Loss - Adequately hydrating Chronic: Hypothyroidism Plan: She is clinically stable Continue conservative treatment Routine AM Labs PRN Meds for Symptomatic Control Start clears and advance as tolerated Continue PT/OT consult for d/c placement Code Status: 1 D/c if able to tolerate solid meals/food
[2017-07-20] MEDS: Levothyroxine 25 MCG Tab PO SCH (06:27)
[2017-07-20] MEDS: Famotidine 20 MG Tab PO SCH (10:16)
--- NOTE | 2017-07-20 12:48 | PCM.DCSUM1 ---
Discharge Summary - Hospital Course Brief History: This is an 82 yo pleasant elderly white female with past medical hx/o hypothyroidism who comes in for evaluation of upper abdominal pain associated with nausea, vomiting and lose bowel movement that started shortly today. She denies eating/drinking unusual food or fluids. She denies any sick contact. No recent travel outside the country. She report no previous hx/o it in the past. She also associate her c/o with weakness, lightheadedness, dizziness and diaphoresis. Patient was admitted for medical management of epigastric pain and partial small bowel obstruction. - Discharge Data Discharge Date: 07/20/17 Discharge Disposition: Home, Self-Care 01 Condition: Good - Discharge Diagnosis/Problem(s) (1) Partial small bowel obstruction SNOMED Code(s): 804843637 ICD Code: K56.600 - PARTIAL INTESTINAL OBSTRUCTION, UNSPECIFIED TO CAUSE Status: Acute (2) Dehydration SNOMED Code(s): 13615707 ICD Code: E86.0 - DEHYDRATION Status: Acute (3) Hypothyroidism SNOMED Code(s): 24555582 ICD Code: E03.9 - HYPOTHYROIDISM, UNSPECIFIED Status: Acute Qualifiers: Hypothyroidism type: unspecified Qualified Code(s): E03.9 - Hypothyroidism , unspecified - Patient Summary/Data Operative Procedure(s) Performed: None Complications: None Consults: Consultations 07/18/17 22:14 Consult to Racebook Writer [CONS] Routine Consult to Spiritual Care [CONS] Routine OT Evaluation and Treatment [CONS] Routine PT Evaluation and Treatment [CONS] Routine Labs Pending at D/C: None Recommended Follow-up Testing/Procedures: None Planned Operative Procedure(s) after DC: None Hospital Course: Patient was primarily admitted for medical evaluation of abdominal pain and she was found to have partial small bowel obstruction. She carried no past gastrointestinal medical or surgical history. Upon admission, she was primarily treated with conservative management along with a prokinetic agent. Immediately, she improved on this regimen. Thereafter, clear diet was started and soon advanced to the next diet level until she tolerated solid meal without any symptoms. Her hospital course was uncomplicated and she had done very well since admission. Once medically stable, she was then discharged to home. She was advised to follow-up with her primary care in 1-2 weeks. The patient expressed understanding and in agreement with the plans as discussed above. All questions were answered. - Patient Instructions Diet: Usual Diet as Tolerated Activity: As Tolerated Driving: May Drive Today Showering/Bathing: May Shower Notify Provider of: Fever, Increased Pain, Nausea and/or Vomiting Other/Special Instructions: - Please resume all home medications. - Continue home routine activities without any restrictions. - Call or follow up with your doctor for any questions or concerns after discharge. - Follow up with your doctor in 1-2 weeks as needed - Discharge Plan Home Medications: Home Meds Levothyroxine 25 mcg PO ACBREAKFAST 07/18/17 [History] Cholecalciferol (Vitamin D3) [D3-2000] 6,000 unit PO DAILY 07/19/17 [History] Fish Oil/Cherry Plain-3 Fatty Acids [Fish Oil 1,000 MG] 1 each PO DAILY 07/19/17 [ History] Magnesium Oxide 500 mg PO BEDTIME 07/19/17 [History] Ubidecarenone/Vitamin E Mixed [[id number] 200 mg-20 Unit Sfg] 600 unit PO DAILY 07/19/17 [History] Patient Handouts: Small Bowel Obstruction, [id number], Dehydration, Adult, [id number] Referrals: PCP,Not In Area [Primary Care Provider] - (Please follow up with your primary care provider in 7-10 days. ) - Discharge Summary/Plan Comment DC Time >30 min.: Yes (45 mins) Discharge Summary/Plan Comment: Discharge to Home - General Info Date of Service: 07/20/17 Admission Dx/Problem (Free Text: Admission Diagnosis/Problem Admission Diagnosis/Problem Ileus Subjective Update: Follow Up Functional Status: Reports: Pain Controlled, Tolerating Diet, Ambulating, Urinating. Denies: New Symptoms - Review of Systems General: Denies: Fever, Weakness, Fatigue, Malaise, Chills HEENT: Reports: No Symptoms Pulmonary: Reports: Shortness of Breath Cardiovascular: Denies: Chest Pain, Palpitations, Dyspnea on Exertion, Lightheadedness Gastrointestinal: Reports: Flatus. Denies: Abdominal Pain, Constipation, Decreased Appetite, Diarrhea, Difficulty Swallowing, Nausea, Vomiting Genitourinary: Reports: No Symptoms Musculoskeletal: Reports: No Symptoms Skin: Denies: Cyanosis, Mottled, Pallor, Diaphoresis, Pruritis, Rash Neurological: Denies: Confusion, Difficulty Walking, Weakness, Gait Disturbance Psychiatric: Denies: Depression, Anxiety, Agitation, Hallucinations Systems Review Comment: No significant overnight or acute issues. She is doing well. She has no issues with current diet. She is passing gas and reports no GI complaints. - Patient Data Vitals - Most Recent: Last Vital Signs Temp 36.8 C 07/20/17 07:51 Pulse 79 07/20/17 10:19 Resp 18 07/20/17 07:51 BP 143/76 H 07/20/17 10:18 Pulse Ox 95 07/20/17 10:19 Weight - Most Recent: 77.706 kg I&O - Last 24 hours: Intake & Output 07/19/17 07/20/17 07/20/17 22:59 06:59 14:59 Intake Total 1460 150 Output Total 400 900 Balance 1060 -750 Med Orders - Current: Current Medications Acetaminophen (Tylenol) 650 mg PO Q4H PRN PRN Reason: Pain (Mild 1-3)/fever Albuterol/Ipratropium (Duoneb 3.0-0.5 Mg/3 Ml) 3 ml NEB Q4H PRN PRN Reason: Shortness Of Breath/wheezing Famotidine (Pepcid) 20 mg PO DAILY [facility] Last Admin: 07/20/17 10:16 Dose: 20 mg Hydralazine HCl (Apresoline) 20 mg IVPUSH Q4H PRN PRN Reason: Hypertension Hydromorphone HCl (Dilaudid) 0.25 mg IVPUSH Q2H PRN PRN Reason: Pain (severe 7-10) Levothyroxine Sodium (Levothyroxine) 25 mcg PO ACBREAKFAST [facility] Last Admin: 07/20/17 06:27 Dose: 25 mcg Lorazepam (Ativan) 0.25 mg IV Q6H PRN PRN Reason: Anxiety Lorazepam (Ativan) 2 mg IVPUSH Q4H PRN PRN Reason: Seizures Magnesium Sulfate (Pharmacy To Dose - Magnesium Replacement) 1 dose .XX ASDIRECTED [facility] Metoclopramide HCl (Reglan) 2.5 mg IVPUSH Q8H PRN PRN Reason: SBO Metoprolol Tartrate (Lopressor) 5 mg IVPUSH Q4H PRN PRN Reason: Tachycardia Ondansetron HCl (Zofran) 4 mg IV Q4H PRN PRN Reason: Nausea/Vomiting Potassium Chloride (Pharmacy To Dose - Potassium Replacement) 1 dose .XX ASDIRECTED [facility] Sodium Chloride (Saline Flush) 10 ml FLUSH ASDIRECTED PRN PRN Reason: Keep Vein Open Last Admin: 07/18/17 14:32 Dose: 10 ml Sodium Chloride (Saline Flush) 10 ml FLUSH ONETIME PRN PRN Reason: IV FLUSH Last Admin: 07/18/17 18:54 Dose: 10 ml Discontinued Medications Diatrizoate Meglum/Diatrizoate Sod (Gastrografin 37%) 90 ml PO ONETIME ONE Stop: 07/18/17 18:27 Last Admin: 07/18/17 18:54 Dose: 90 ml Famotidine (Pepcid) 20 mg PO ONETIME ONE Stop: 07/18/17 14:20 Last Admin: 07/18/17 17:52 Dose: Not Given Famotidine (Pepcid) Confirm Administered Dose 20 mg .ROUTE .STK-MED ONE Stop: 07/18/17 14:34 Last Admin: 07/18/17 14:32 Dose: Not Given Famotidine (Pepcid) 20 mg IVPUSH ONETIME ONE Stop: 07/18/17 14:31 Last Admin: 07/18/17 14:34 Dose: 20 mg Hydromorphone HCl (Dilaudid) 0.25 mg IVPUSH ONETIME ONE Stop: 07/18/17 14:59 Last Admin: 07/18/17 15:06 Dose: 0.25 mg Hydromorphone HCl (Dilaudid) 0.25 mg IVPUSH ONETIME ONE Stop: 07/18/17 15:48 Last Admin: 07/18/17 16:19 Dose: 0.25 mg Sodium Chloride (Normal Saline) 500 mls @ 999 mls/hr IV .BOLUS ONE Stop: 07/18/17 14:49 Last Admin: 07/18/17 14:31 Dose: 999 mls/hr Promethazine HCl 6.25 mg/ (Sodium Chloride) 50.25 mls @ 100 mls/hr IV Q6H PRN PRN Reason: Nausea/Vomiting Dextrose/Sodium Chloride (Dextrose 5%-Normal Saline) 1,000 mls @ 100 mls/hr IV ASDIRECTED [facility] Last Admin: 07/18/17 22:33 Dose: 100 mls/hr Iopamidol (Isovue-300 (61%)) 100 ml IVPUSH ONETIME ONE Stop: 07/18/17 18:27 Last Admin: 07/18/17 18:54 Dose: 100 ml Metoclopramide HCl (Reglan) 5 mg IVPUSH ONETIME ONE Stop: 07/18/17 15:35 Last Admin: 07/18/17 15:40 Dose: 5 mg Metoclopramide HCl (Reglan) 2.5 mg IVPUSH Q8H [facility] Last Admin: 07/19/17 06:52 Dose: 2.5 mg Ondansetron HCl (Zofran) 4 mg IVPUSH ONETIME ONE Stop: 07/18/17 14:20 Last Admin: 07/18/17 14:31 Dose: 4 mg Pantoprazole Sodium (Protonix Iv) 40 mg .XX ONETIME ONE Stop: 07/18/17 22:12 Last Admin: 07/19/17 01:28 Dose: Not Given Pantoprazole Sodium (Protonix Iv) 40 mg IVPUSH ONETIME ONE Stop: 07/19/17 00:57 Last Admin: 07/19/17 04:16 Dose: 40 mg Promethazine HCl (Phenergan) 25 mg IM ONETIME ONE Stop: 07/18/17 16:56 Last Admin: 07/18/17 17:00 Dose: 25 mg - Exam General: Reports: Alert, Oriented, Cooperative, No Acute Distress HEENT: Reports: Pupils Equal, Pupils Reactive, EOMI, Mucous Membr. Moist/[place] Neck: Reports: Supple, Trachea Midline, No JVD, No Thyromegaly Lungs: Reports: Clear to Auscultation, Normal Respiratory Effort Cardiovascular: Reports: Regular Rate, Regular Rhythm GI/Abdominal Exam: Normal Bowel Sounds, Soft, Non-Tender, No Organomegaly, No Distention, No Abnormal Bruit, No Mass (Female) Exam: Deferred Rectal (Female) Exam: Deferred Back Exam: Reports: Normal Inspection, Decreased Range of Motion Extremities: Normal Inspection, Normal Range of Motion, Non-Tender, No Pedal Edema, Normal Capillary Refill Skin: Reports: Warm, Dry, Intact Neurological: Reports: No New Focal Deficit Psy/Mental Status: Reports: Alert, Normal Affect, Normal Mood *Q Meaningful Use (DIS) - VTE *Q VTE Criteria *Q: - Stroke *Q Stroke Criteria *Q: - AMI *Q AMI Criteria *Q:
== END 2017-07-20 14:58 | disposition home or self-care (01) | DRG 390 ==
LOC: JD.ED 14:09 → JD.MS 20:45
PROVIDERS: ADMIT Internal Medicine; ATTEND Internal Medicine
DX: R10.10 Upper abdominal pain, unspecified (principal); R11.2 Nausea with vomiting, unspecified; K56.600 Partial intestinal obstruction, unspecified as to cause; E86.0 Dehydration; E03.9 Hypothyroidism, unspecified; I25.2 Old myocardial infarction; I25.10 Atherosclerotic heart disease of native coronary artery without angina pectoris; Z95.5 Presence of coronary angioplasty implant and graft; Z88.0 Allergy status to penicillin; Z88.8 Allergy status to other drugs, medicaments and biological substances; Z79.899 Other long term (current) drug therapy; Z87.891 Personal history of nicotine dependence
CPT/HCPCS: 36415; 71045; 74018; 74177; 80053; 84484 ×2; 85025; 93005; 96372; 96374; 96375; 96376; 99285; J1170 ×2; J2405; J2550; J2765; J7040; J7050 ×2; Q9963; Q9967; 80048; 83735; 94760; 97161-GP; 97165-GO; A9270-GY; C9113; J7042

== ENCOUNTER 2017-09-17 22:37 | Emergency (ER) | payer MEDICARE, OTHER ==
--- NOTE | 2017-09-18 00:20 | EDM.PDOC ---
ED HPI GENERAL MEDICAL PROBLEM - General Chief Complaint: Cardiovascular Problem Stated Complaint: HEATBEAT OUT OF RHYTHM Time Seen by Provider: 09/17/17 22:58 Source of Information: Reports: Patient, Family (Daughter) History Limitations: Reports: No Limitations - History of Present Illness INITIAL COMMENTS - FREE TEXT/NARRATIVE: The patient states that her blood pressure has been "all over the place" today. She states that she got up late, around 11:30, and just didn't feel well. She checked her blood pressure, and found it to be about 150/100. She states that she felt dizzy this afternoon - the patient has difficulty in distinguishing whether her dizziness was lightheadedness or vertigo. She rechecked her blood pressure around 15:00 and found it to be in the 150s/90s. She rechecked it again around 18:00 and found it to be 104/77. She still felt dizzy when she went to bed, therefore checked her blood pressure again, finding it to be 170/ 109, prompting her to come to the ED. During all of these blood pressure readings, her heart rate was in the 70-90 range. Here in the ED, the patient's initial blood pressure was 227/112 with a heart rate of 89. She is not feeling lightheaded presently. The patient's PCP is Dr. Montesinos. The patient states that she has an appointment to see him later today. - Related Data Allergies Allergy/AdvReac Type Severity Reaction Status Date / Time Penicillins Allergy Cannot Verified 09/17/17 22:49 Remember codeine AdvReac Nausea and Verified 09/17/17 22:49 Vomiting diazepam [From Valium] AdvReac Change Verified 09/17/17 22:49 Mental Status hydrocodone AdvReac Nausea and Verified 09/17/17 22:49 Vomiting Home Meds: Home Meds Levothyroxine 25 mcg PO ACBREAKFAST 07/18/17 [History] Cholecalciferol (Vitamin D3) [D3-2000] 6,000 unit PO DAILY 07/19/17 [History] Fish Oil/[place]-3 Fatty Acids [Fish Oil 1,000 MG] 1 each PO DAILY 07/19/17 [ History] Magnesium Oxide 500 mg PO BEDTIME 07/19/17 [History] Ubidecarenone/Vitamin E Mixed [Wky25-Xoh E 200 mg-20 Unit Sfg] 600 unit PO DAILY 07/19/17 [History] Past Medical History HEENT History: Reports: Other (See Below) Other HEENT History: upper and lower dentures, wears glasses for reading Cardiovascular History: Reports: CAD, Hypertension, [place] Musculoskeletal History: Reports: Fracture Endocrine/Metabolic History: Reports: Hypothyroidism Oncologic (Cancer) History: Reports: Breast (right) - Past Surgical History Cardiovascular Surgical History: Reports: Coronary Artery Stent (x 1), Other ( See Below) (Port-A-Cath placed and subsequently removed) GI Surgical History: Reports: Appendectomy, Cholecystectomy, Colonoscopy Female Surgical History: Reports: Breast Reconstruction (right) Neurological Surgical History: Reports: Lumbar Spine (laminectomy) Musculoskeletal Surgical History: Reports: ORIF (left wrist) Oncologic Surgical History: Reports: Mastectomy (right) Social & Family History - Family History Family Medical History: Noncontributory - Tobacco Use Smoking Status *Q: Former Smoker Years of Tobacco use: 27 Packs/Tins Daily: 3 Month/Year Tobacco Last Used: Quit 1977 Second Hand Smoke Exposure: No - Caffeine Use Caffeine Use: Reports: Coffee - Alcohol Use Alcohol Use History: Yes Days Per Week of Alcohol Use: 0 Alcohol Use Frequency: Socially - Recreational Drug Use Recreational Drug Use: No - Living Situation & Occupation Living situation: Reports: , with Family (Daughter, grandson, 2 great- grandchildren) Occupation: Retired ED ROS GENERAL - Review of Systems Review Of Systems: ROS reveals no pertinent complaints other than HPI. ED EXAM, GENERAL - Physical Exam Exam: See Below Exam Limited By: No Limitations General Appearance: Alert, WD/WN, No Apparent Distress Eye Exam: Bilateral Eye: Normal Inspection Ears: Normal External Exam, Hearing Grossly Normal Nose: Normal Inspection, No Blood Throat/Mouth: Normal Inspection, Normal Lips, Normal Voice, No Airway Compromise Head: Atraumatic, Normocephalic Neck: Normal Inspection, Full Range of Motion Respiratory/Chest: No Respiratory Distress, Lungs Clear, Normal Breath Sounds, No Accessory Muscle Use Cardiovascular: Normal Peripheral Pulses, Regular Rate, Rhythm, No Edema, No Gallop, No JVD, No Murmur, No Rub Peripheral Pulses: 4+: Radial (L), Radial (R) GI/Abdominal: Normal Bowel Sounds, Soft, Non-Tender, No Organomegaly, No Distention, No Abnormal Bruit, No Mass (Female) Exam: Deferred Rectal (Female) Exam: Deferred Back Exam: Normal Inspection, Full Range of Motion, NT Extremities: Normal Inspection, Normal Range of Motion, No Pedal Edema, Normal Capillary Refill Neurological: Alert, Oriented, CN II-XII Intact, Normal Cognition, No Motor/ Sensory Deficits Psychiatric: Normal Affect Skin Exam: Warm, Dry, Intact, Normal Color, No Rash EKG INTERPRETATION EKG Date: 09/17/17 Time: 22:45 Rhythm: NSR Rate (Beats/Min): 78 [place]: Normal P-Wave: Present QRS: Normal ST-T: Normal QT: Normal Comparison: No Change (07/18/2017) Course - Vital Signs Last Recorded V/S: Last Vital Signs Temp 36.2 C 09/17/17 22:43 Pulse 89 09/17/17 22:43 Resp 16 09/17/17 22:43 BP 227/112 H 09/17/17 22:43 Pulse Ox 98 09/17/17 22:43 Orthostatic Blood Pressure [ 219/115 Standing] Orthostatic Blood Pressure [ 217/122 Sitting] Orthostatic Blood Pressure [ 252/113 Supine] - Re-Assessments/Exams Free Text/Narrative Re-Assessment/Exam: 09/18/17 00:19 I had Suni HAYES help the patient ambulate the halls. She did well, without dizziness, although she states that she still has a "funny feeling" inside of her head. I suspect that the patient has been suffering from BPPV, however, there is the possibility that the patient could have an intracranial tumor. A CT scan of the head is not the best modality, rather, a MRI would be better. I will discharge the patient home. She states that she has an appointment to see her PCP later today. She can discuss the option of a MRI with him. We discussed at length hypertension, and how to diagnose it. The patient's most recent BP is 153/104, with a heart rate of 81. These values are well below indications for treatment. Departure - Departure Time of Disposition: 00:26 Disposition: Home, Self-Care 01 Condition: Good Clinical Impression: Elevated blood pressure reading, Vertigo Instructions: Vertigo Referrals: PCP,Not In Area [Primary Care Provider] - Forms: ED Department Discharge Additional Instructions: You were seen in the emergency room for elevated blood pressure and dizziness. How to properly measure blood pressure was discussed at length. Your most recent blood pressure reading was 153/104, well below any need to treat emergently. Your neurologic exam was normal, and your dizziness had resolved in the ER. The cause of your dizziness is not known, but was LIKELY due to benign paroxysmal positional vertigo (BPPV). Follow-up with your primary care physician, Dr. Montesinos, at your previously scheduled appointment later today. At that time, you can discuss the option of getting a MRI of your brain. If any other problems, please do not hesitate to return to the ER.
== END 2017-09-18 00:37 | disposition home or self-care (01) ==
LOC: JD.ED 22:37
DX: I10 Essential (primary) hypertension (principal); I25.10 Atherosclerotic heart disease of native coronary artery without angina pectoris; I25.2 Old myocardial infarction; Z88.0 Allergy status to penicillin; Z88.5 Allergy status to narcotic agent; Z79.899 Other long term (current) drug therapy; Z95.5 Presence of coronary angioplasty implant and graft; Z87.891 Personal history of nicotine dependence
CPT/HCPCS: 93010; 99284; 99284-25

== ENCOUNTER 2019-07-24 19:20 | Emergency (ER) | payer MEDICARE, OTHER ==
--- NOTE | 2019-07-24 20:21 | EDM.PDOC ---
ED HPI GENERAL MEDICAL PROBLEM - General Chief Complaint: Chest Pain Stated Complaint: CHEST PAIN Time Seen by Provider: 07/24/19 20:21 - History of Present Illness INITIAL COMMENTS - FREE TEXT/NARRATIVE: 84-year-old female comes emergency room with some chest discomfort and dyspnea on exertion. Patient developed some symptoms when she is out walking around she sits and gets better. She is able to go out shopping and if her daughter is doing suddenly takes too long she sits down at other times if she does things and she gets short of breath she sits down it gets better. Patient has a history of atherosclerotic cardiovascular disease she has a stent is been about 5 years since she seen her content coordinator and probably needs to follow-up with him. She is not having any increased lower extremity edema. Denying any chest pain at rest. - Related Data Allergies Allergy/AdvReac Type Severity Reaction Status Date / Time Penicillins Allergy Cannot Verified 07/24/19 19:33 Remember codeine AdvReac Nausea and Verified 07/24/19 19:33 Vomiting diazepam [From Valium] AdvReac Change Verified 07/24/19 19:33 Mental Status hydrocodone AdvReac Nausea and Verified 07/24/19 19:33 Vomiting Home Meds: Home Meds RX: Levothyroxine 25 mcg PO ACBREAKFAST 07/18/17 [History] RX: Cholecalciferol (Vitamin D3) [D3-2000] 6,000 unit PO DAILY 07/19/17 [History ] RX: Fish Oil/[place]-3 Fatty Acids [Fish Oil 1,000 MG] 1 each PO DAILY 07/19/17 [ History] RX: Magnesium Oxide 500 mg PO BEDTIME 07/19/17 [History] RX: Ubidecarenone/Vitamin E Mixed [Bsd85-Qho E 200 mg-20 Unit Sfg] 600 unit PO DAILY 07/19/17 [History] Past Medical History HEENT History: Reports: Other (See Below) Other HEENT History: upper and lower dentures, wears glasses for reading Cardiovascular History: Reports: CAD, Hypertension, [place] Respiratory History: Reports: SOB Gastrointestinal History: Reports: None TIP BANDER History: Reports: None Musculoskeletal History: Reports: Fracture Neurological History: Reports: None Psychiatric History: Reports: None Endocrine/Metabolic History: Reports: Hypothyroidism Oncologic (Cancer) History: Reports: Breast Other Oncologic History: skin cancer Dermatologic History: Reports: None - Infectious Disease History Infectious Disease History: Reports: None - Past Surgical History Cardiovascular Surgical History: Reports: Coronary Artery Stent, Other (See Below) GI Surgical History: Reports: Appendectomy, Cholecystectomy, Colonoscopy Female Surgical History: Reports: Breast Reconstruction Neurological Surgical History: Reports: Lumbar Spine Musculoskeletal Surgical History: Reports: ORIF Oncologic Surgical History: Reports: Mastectomy Dermatological Surgical History: Reports: None Social & Family History - Family History Family Medical History: Noncontributory - Tobacco Use Smoking Status *Q: Never Smoker - Caffeine Use Caffeine Use: Reports: Coffee - Recreational Drug Use Recreational Drug Use: No - Living Situation & Occupation Living situation: Reports: , with Family (Daughter, grandson, 2 great- grandchildren) Occupation: Retired ED ROS GENERAL - Review of Systems Review Of Systems: See Below Constitutional: Reports: No Symptoms, Weight Gain HEENT: Reports: No Symptoms Cardiovascular: Reports: Chest Pain (70 not at rest), Dyspnea on Exertion GI/Abdominal: Reports: No Symptoms : Reports: No Symptoms Musculoskeletal: Reports: No Symptoms Skin: Reports: No Symptoms Neurological: Reports: No Symptoms Psychiatric: Reports: No Symptoms Hematologic/Lymphatic: Reports: No Symptoms Immunologic: Reports: No Symptoms ED EXAM, GENERAL - Physical Exam Exam: See Below Exam Limited By: No Limitations General Appearance: Alert, No Apparent Distress Eye Exam: Bilateral Eye: Normal Inspection Nose: Normal Inspection, Normal Mucosa, No Blood Throat/Mouth: Normal Inspection Head: Atraumatic, Normocephalic Neck: Normal Inspection GI/Abdominal: Normal Bowel Sounds, Soft, Non-Tender Back Exam: Normal Inspection. No: CVA Tenderness (L), CVA Tenderness (R) Extremities: Normal Inspection, No Pedal Edema Neurological: Alert, Oriented, Normal Cognition Course - Vital Signs Last Recorded V/S: Last Vital Signs Temp Pulse 70 07/24/19 23:06 Resp 16 07/24/19 19:52 BP 156/84 H 07/24/19 23:06 Pulse Ox 97 07/24/19 19:52 - Orders/Labs/Meds Orders: Active Orders 24 hr Category Date Time Status EKG Documentation Completion [RC] ASDIRECTED Care 07/24/19 20:16 Active Ang Chest [CT] Stat Exams 07/24/19 20:48 Taken Chest 1V Frontal [CR] Stat Exams 07/24/19 20:17 Taken EKG 12 Lead [EK] Stat Ther 07/24/19 20:15 Ordered Labs: Laboratory Tests 07/24/19 07/24/19 07/24/19 Range/Units 19:48 19:48 19:48 WBC 7.78 (3.98-10.04) K/mm3 RBC 4.32 (3.98-5.22) M/mm3 Hgb 13.1 (11.2-15.7) gm/dl Hct 39.2 (34.1-44.9) % MCV 90.7 (79.4-94.8) fl MCH 30.3 (25.6-32.2) pg MCHC 33.4 (32.2-35.5) g/dl RDW Std Deviation 42.1 (36.4-46.3) fL Plt Count 243 (182-369) K/mm3 MPV 10.1 (9.4-12.3) fl Neut % (Auto) 42.5 (34.0-71.1) % Lymph % (Auto) 43.8 (19.3-51.7) % Gregory % (Auto) 12.2 (4.7-12.5) % Eos % (Auto) 1.0 (0.7-5.8) Baso % (Auto) 0.4 (0.1-1.2) % Neut # (Auto) 3.30 (1.56-6.13) K/mm3 Lymph # (Auto) 3.41 (1.18-3.74) K/mm3 Gregory # (Auto) 0.95 H (0.24-0.36) K/mm3 Eos # (Auto) 0.08 (0.04-0.36) K/mm3 Baso # (Auto) 0.03 (0.01-0.08) K/mm3 PT (9.7-12.0) SECONDS INR APTT (22-31) SECONDS D-Dimer, Quantitative 1.13 H (0.19-0.50) mg/L Sodium 137 (136-145) mEq/L Potassium 3.9 (3.5-5.1) mEq/L Chloride 100 (98-107) mEq/L Carbon Dioxide 24 (21-32) mEq/L Anion Gap 16.9 H (5-15) BUN 28 H (7-18) mg/dL Creatinine 1.3 H (0.55-1.02) mg/dL Est Cr Clr Drug Dosing TNP Estimated GFR (MDRD) 39 (>60) mL/min BUN/Creatinine Ratio 21.5 H (14-18) Glucose 106 (83-115) mg/dL Calcium 9.1 (8.5-10.1) mg/dL Total Bilirubin 0.3 (0.2-1.0) mg/dL AST 18 (15-37) U/L ALT 20 (14-59) U/L Alkaline Phosphatase 65 (46-116) U/L Troponin I 0.604 H* (0.00-0.056) ng/mL Total Protein 8.2 (6.4-8.2) g/dl Albumin 4.1 (3.4-5.0) g/dl Globulin 4.1 gm/dL Albumin/Globulin Ratio 1.0 (1-2) TSH 3rd Generation (0.358-3.74) uIU/mL 07/24/19 07/24/19 07/24/19 Range/Units 19:48 22:18 22:18 WBC (3.98-10.04) K/mm3 RBC (3.98-5.22) M/mm3 Hgb (11.2-15.7) gm/dl Hct (34.1-44.9) % MCV (79.4-94.8) fl MCH (25.6-32.2) pg MCHC (32.2-35.5) g/dl RDW Std Deviation (36.4-46.3) fL Plt Count (182-369) K/mm3 MPV (9.4-12.3) fl Neut % (Auto) (34.0-71.1) % Lymph % (Auto) (19.3-51.7) % Gregory % (Auto) (4.7-12.5) % Eos % (Auto) (0.7-5.8) Baso % (Auto) (0.1-1.2) % Neut # (Auto) (1.56-6.13) K/mm3 Lymph # (Auto) (1.18-3.74) K/mm3 Gregory # (Auto) (0.24-0.36) K/mm3 Eos # (Auto) (0.04-0.36) K/mm3 Baso # (Auto) (0.01-0.08) K/mm3 PT 10.3 (9.7-12.0) SECONDS INR 0.94 APTT 25 (22-31) SECONDS D-Dimer, Quantitative (0.19-0.50) mg/L Sodium (136-145) mEq/L Potassium (3.5-5.1) mEq/L Chloride (98-107) mEq/L Carbon Dioxide (21-32) mEq/L Anion Gap (5-15) BUN (7-18) mg/dL Creatinine (0.55-1.02) mg/dL Est Cr Clr Drug Dosing Estimated GFR (MDRD) (>60) mL/min BUN/Creatinine Ratio (14-18) Glucose (83-115) mg/dL Calcium (8.5-10.1) mg/dL Total Bilirubin (0.2-1.0) mg/dL AST (15-37) U/L ALT (14-59) U/L Alkaline Phosphatase (46-116) U/L Troponin I 0.658 H* (0.00-0.056) ng/mL Total Protein (6.4-8.2) g/dl Albumin (3.4-5.0) g/dl Globulin gm/dL Albumin/Globulin Ratio (1-2) TSH 3rd Generation 2.835 (0.358-3.74) uIU/mL Meds: Medications Discontinued Medications Generic Name Dose Route Start Last Admin Trade Name Freq PRN Reason Stop Dose Admin Aspirin 324 mg 07/24/19 20:36 07/24/19 20:52 Aspirin PO 07/24/19 20:37 Not Given ONETIME ONE Aspirin 162 mg 07/24/19 20:50 07/24/19 20:51 Aspirin PO 07/24/19 20:51 162 mg ONETIME ONE Administration Heparin Sodium (Porcine) 4,000 units 07/24/19 22:28 07/24/19 22:39 Heparin Sodium IVPUSH 07/24/19 22:29 4,000 units ONETIME ONE Administration Sodium Chloride 500 mls @ 500 mls/hr 07/24/19 20:47 07/24/19 20:55 Normal Saline IV 07/24/19 21:46 500 mls/hr .BOLUS ONE Administration Metoprolol Tartrate 5 mg/ 55 mls @ 100 mls/hr 07/24/19 22:10 Sodium Chloride IV 07/24/19 22:42 ONETIME ONE Heparin Sodium/Dextrose 25,000 units in 500 mls @ 20 mls/hr 07/24/19 22:45 22:38 Heparin 25,000 Units In D5w 500 Ml IV 1,000 units/hr TITRATE RICHI 20 mls/hr Administration Protocol 1,000 UNITS/HR Metoprolol Tartrate 5 mg 07/24/19 22:11 07/24/19 22:18 Lopressor IVPUSH 07/24/19 22:12 5 mg ONETIME ONE Administration Metoprolol Tartrate 5 mg 07/24/19 22:11 07/24/19 22:34 Lopressor IVPUSH 07/24/19 22:12 5 mg ONETIME ONE Administration Metoprolol Tartrate 25 mg 07/24/19 23:00 07/24/19 23:06 Lopressor PO 07/24/19 23:01 25 mg ONETIME ONE Administration - Re-Assessments/Exams Free Text/Narrative Re-Assessment/Exam: 07/24/19 22:43 Was found to have an elevated troponin at 0.604 most consistent with a non- STEMI. I am trying to get acceptance at [facility] right now. In the meantime we will start a heparin drip and bolus and give some Lopressor which she seems to be tolerating just fine. Anticipate transfer to [facility] 07/24/19 23:05 Patient's troponin did go up 0.658. Did discuss situation with Dr. Mccracken hospitalist at [facility] who is kind enough to accept the patient in transfer. Patient's been started on heparin and Lopressor. Departure - Departure Time of Disposition: 22:44 Disposition: DC/Tfer to Acute Hospital 02 Reason for Transfer *Q: Other Clinical Impression: Non-STEMI (non-ST elevated myocardial infarction) Referrals: PCP,Unknown [Ordering Only Provider] - Forms: ED Department Discharge Sepsis Event Note - Evaluation Sepsis Screening Result: No Definite Risk - Focused Exam Vital Signs: Vital Signs Pulse Pulse Resp BP BP Pulse Ox 07/24/19 23:06 70 156/84 H 07/24/19 22:34 75 166/91 H 07/24/19 22:18 102 H 182/106 H 07/24/19 19:52 85 16 97 07/24/19 19:51 150/108 H 07/24/19 19:33 16 Date Exam was Performed: 07/25/19 Time Exam was Performed: 05:39 - My Orders Last 24 Hours: My Active Orders 07/24/19 20:15 EKG 12 Lead [EK] Stat 07/24/19 20:16 EKG Documentation Completion [RC] ASDIRECTED 07/24/19 20:17 Chest 1V Frontal [CR] Stat 07/24/19 20:48 Ang Chest [CT] Stat - Assessment/Plan Last 24 Hours: My Active Orders 07/24/19 20:15 EKG 12 Lead [EK] Stat 07/24/19 20:16 EKG Documentation Completion [RC] ASDIRECTED 07/24/19 20:17 Chest 1V Frontal [CR] Stat 07/24/19 20:48 Ang Chest [CT] Stat
[2019-07-24] MEDS ORDERED: Aspirin 81 MG Tab.Chew PO ONE ×2 (20:36→20:50)
[2019-07-24] MEDS ORDERED: Sodium Chloride 0.9% 500 ML IV ONE (20:47)
[2019-07-24] MEDS ORDERED: Metoprolol Tartrate 5 MG in Sodium Chloride 0.9% 50 ML IV ONE (22:10)
[2019-07-24] MEDS ORDERED: Metoprolol Tartrate 5 MG/5 ML SDV IVPUSH ONE ×2 (22:11)
[2019-07-24] MEDS ORDERED: Heparin Sodium 5,000 Units/ML Vial IVPUSH ONE (22:28)
[2019-07-24] MEDS ORDERED: Heparin Sodium/D5W 25,000 UNITS/500 ML BAG IV SCH (22:45)
[2019-07-24] MEDS ORDERED: Metoprolol Tartrate 25 MG Tab PO ONE (23:00)
--- NOTE | 2019-07-25 08:39 | CT ---
CT chest Technique: Multiple axial sections through the chest were obtained. Intravenous contrast was utilized. Study has been performed as a pulmonary angiogram protocol. Comparison: No prior chest CT is available, prior chest x-ray of 07/18/17 is available. Findings: Pulmonary arteries are well opacified. No filling defects are seen to indicate pulmonary embolism. Aorta shows atherosclerotic change without aneurysm or dissection. Moderate coronary artery calcification is noted. Small hiatal hernia is present. Surgical clips are noted from prior cholecystectomy. Possible mild central bronchial wall thickening is seen. Lungs otherwise are clear with no acute parenchymal change. Slight scarring is noted within both upper lungs. Bone window settings were reviewed which show a compression deformity within the mid thoracic spine which appears to be old. Minimal degenerative endplate spurring is seen within the spine. No acute osseous finding is appreciated. Impression: 1. No findings of pulmonary embolism. Thoracic aorta shows no aneurysm or dissection. 2. Small hiatal hernia. 3. Moderate coronary artery calcification. 4. Questionable mild bronchitis, please correlate if this matches patient's clinical symptoms. Diagnostic code #2 This report was dictated in [place] Standard Time I agree with preliminary report from [facility], finalized on 07/24/19, 11:25 PM Central Time
--- NOTE | 2019-07-25 08:39 | CR ---
Chest: Portable view of the chest was obtained. Comparison: Prior chest x-ray of 07/18/17. Heart size and mediastinum are within normal limits for portable technique. Surgical clips are seen within the right axillary region. Lungs are clear with no acute parenchymal change. Bony structures are grossly intact. Impression: 1. Nothing acute is appreciated on portable chest x-ray. Diagnostic code #2 This report was dictated in [place] Standard Time
== END 2019-07-24 23:25 ==
LOC: JD.ED 19:20
DX: I21.4 Non-ST elevation (NSTEMI) myocardial infarction (principal); I25.10 Atherosclerotic heart disease of native coronary artery without angina pectoris; I10 Essential (primary) hypertension; I25.2 Old myocardial infarction; E03.9 Hypothyroidism, unspecified; Z88.0 Allergy status to penicillin; Z88.5 Allergy status to narcotic agent; Z79.899 Other long term (current) drug therapy
CPT/HCPCS: 36415; 71045; 71275; 80053; 84443; 84484; 85025; 85379; 85610; 85730; 93005; 96361; 96365; 96375; 99285; A9270; J1644; J3490; J7030; 93010

== ENCOUNTER 2021-07-27 17:41 | Emergency (ER) | payer MEDICARE, OTHER | END 2021-07-27 19:30 | disposition home or self-care (01) | LOC: JD.ED 17:41 | DX: S40.011A Contusion of right shoulder, initial encounter (principal); I25.10 Atherosclerotic heart disease of native coronary artery without angina pectoris; I10 Essential (primary) hypertension; I25.2 Old myocardial infarction; E03.9 Hypothyroidism, unspecified; Z87.891 Personal history of nicotine dependence; Z95.5 Presence of coronary angioplasty implant and graft; Z88.0 Allergy status to penicillin; Z88.5 Allergy status to narcotic agent; Z88.8 Allergy status to other drugs, medicaments and biological substances; Z79.82 Long term (current) use of aspirin; Z79.02 Long term (current) use of antithrombotics/antiplatelets; Z79.899 Other long term (current) drug therapy; W00.0XXA Fall on same level due to ice and snow, initial encounter | CPT/HCPCS: 73030-26-RT; 73030-RT; 73060-26-RT; 73060-RT; 99283 ==

== ENCOUNTER 2021-07-29 12:14 | Emergency (ER) | payer MEDICARE, OTHER ==
[2021-07-29] MEDS ORDERED: Acetaminophen 325 MG Tab PO ONE (13:01)
[2021-07-29] MEDS ORDERED: Orphenadrine 100 MG Tab.ER PO ONE (13:01)
[2021-07-29] MEDS ORDERED: Ondansetron 4 MG Tab.DIS PO ONE (14:21)
[2021-07-29] MEDS ORDERED: Acetaminophen/oxyCODONE 325-5 MG Tab PO ONE (14:22)
== END 2021-07-29 15:56 | disposition home or self-care (01) ==
LOC: JD.ED 12:14
DX: M25.511 Pain in right shoulder (principal); M25.411 Effusion, right shoulder; I25.10 Atherosclerotic heart disease of native coronary artery without angina pectoris; I10 Essential (primary) hypertension; I25.2 Old myocardial infarction; E03.9 Hypothyroidism, unspecified; Z88.0 Allergy status to penicillin; Z88.5 Allergy status to narcotic agent; Z88.8 Allergy status to other drugs, medicaments and biological substances; Z79.82 Long term (current) use of aspirin; Z79.02 Long term (current) use of antithrombotics/antiplatelets; Z79.899 Other long term (current) drug therapy
CPT/HCPCS: 73200; 99283; A9270; 99284

== ENCOUNTER 2022-09-30 11:07 | Emergency (ER) | payer MEDICARE, OTHER ==
[2022-09-30] MEDS ORDERED: Ketorolac 30 MG/ML SDV IM ONE (13:13)
[2022-09-30] MEDS ORDERED: Ibuprofen 600 MG Tab PO ONE (13:13)
== END 2022-09-30 13:30 | disposition home or self-care (01) ==
LOC: JD.ED 11:07
DX: M25.552 Pain in left hip (principal); M25.532 Pain in left wrist; I25.10 Atherosclerotic heart disease of native coronary artery without angina pectoris; I10 Essential (primary) hypertension; I25.2 Old myocardial infarction; E03.9 Hypothyroidism, unspecified; Z88.0 Allergy status to penicillin; Z88.8 Allergy status to other drugs, medicaments and biological substances; Z88.5 Allergy status to narcotic agent; Z79.82 Long term (current) use of aspirin; Z79.02 Long term (current) use of antithrombotics/antiplatelets; Z79.899 Other long term (current) drug therapy; Z86.16 Personal history of COVID-19; W19.XXXA Unspecified fall, initial encounter; Y92.009 Unspecified place in unspecified non-institutional (private) residence as the place of occurrence of the external cause
CPT/HCPCS: 73110; 73502; 96372; 99283; J1885